=== PATIENT | male | born 2000 | race Hispanic/Latino ===

== ENCOUNTER 2023-06-02 08:24 | Day surgery (SDC) | payer BC ==
[2023-05-28 15:47] LABS: BASOPHILS # (AUTO) 0.04 K/uL (0.00-0.20); BASOPHILS % (AUTO) 0.8 % (0.0-5.0); EOSINOPHILS # (AUTO) 0.05 K/uL (0.00-0.70); HEMATOCRIT 45.7 % (42-54); IMMATURE GRANULOCYTE ABSOLUTE 0.02 K/uL (0-1); LYMPHOCYTES # (AUTO) 1.7 K/uL (1.0-4.8); LYMPHOCYTES % (AUTO) 35.8 % (21.0-51.0); MEAN CORPUSCULAR HEMOGLOBIN 30.9 pg (27.0-33.0); MEAN CORPUSCULAR HGB CONC 34.6 g/dL (32.0-36.0); MEAN CORPUSCULAR VOLUME 89.4 fL (79-99); MONOCYTES # (AUTO) 0.5 K/uL (0.1-1.0); MONOCYTES % (AUTO) 10.8 % (3.0-13.0); NEUTROPHILS # (AUTO) 2.5 K/uL (1.8-7.7); NEUTROPHILS % (AUTO) 51.2 % (40.0-77.0); PLATELET COUNT (AUTO) 309 K/uL (130-400); RED BLOOD CELL COUNT(AUTO) 5.11 MIL/uL (4.50-6.20); RED CELL DISTRIBUTION WIDTH 12.2 % (11.0-15.5); WHITE BLOOD COUNT (AUTO) 4.8 K/uL (4.8-10.8)
[2023-05-28 16:09] LABS: CREATININE 0.9 mg/dL (0.5-1.5); POTASSIUM 3.7 mmol/L (3.5-5.1)
[2023-05-28 16:18] VITALS: BP 127/69; PULSE 65; RESP 12
[2023-06-02] VITALS (17 sets, daily range): BP systolic 120–149; BP diastolic 62–92; PULSE 59–80; RESP 15–20
[~2023-06-02] VITALS: Ht 171.4 cm; Wt 80.7 kg
[2023-06-02] MEDS ORDERED: LACTATED RINGERS 1000ML 1,000 ML IV ONE (08:30)
[2023-06-02] MEDS ORDERED: CEFAZOLIN SODIUM 2 GM VIAL ONE (08:30)
[2023-06-02] MEDS ORDERED: ROCURONIUM 10MG/1ML SYR 10 MG/ML ML ONE (11:30)
[2023-06-02] MEDS ORDERED: MIDAZOLAM HCL 1 MG/ML 2ML VIAL ONE (11:30)
[2023-06-02] MEDS ORDERED: PROPOFOL 10 MG/ML 20ML VIAL IV ONE (11:30)
[2023-06-02] MEDS ORDERED: FENTANYL CITRATE PF 50 MCG/1 ML 2ML VIAL ONE ×2 (11:30→12:55)
[2023-06-02] MEDS ORDERED: ONDANSETRON 4MG INJ ONE (11:30)
[2023-06-02] MEDS ORDERED: MEPERIDINE-PF 25 MG/ML SYG ONE ×2 (11:48→13:17)
[2023-06-02] MEDS ORDERED: CEFAZOLIN SODIUM 2 GM VIAL IVPB ONE (11:51)
[2023-06-02] MEDS ORDERED: DEXAMETHASONE SOD PHOSPHATE 4 MG/ML 1ML VIAL ONE (12:30)
[2023-06-02] MEDS ORDERED: DEXAMETHASONE SOD PHOSPHATE 10MG/ML 1ML VIAL ONE (12:31)
[2023-06-02] MEDS ORDERED: NEOSTIGMINE 5MG/5ML SYR IV ONE (12:49)
[2023-06-02] MEDS ORDERED: GLYCOPYRROLATE 1 MG/5 ML SYRINGE ONE (12:49)
[2023-06-02] MEDS ORDERED: KETOROLAC 30MG VIAL (30MG/ML) ONE (12:51)
[2023-06-02] MEDS ORDERED: HYDROCODONE/ACETAMINOPHEN 10/325 MG TAB PO PRN (13:30)
== END 2023-06-02 14:50 | disposition home or self-care (01) ==
LOC: DAH 08:24
PROVIDERS: ATTEND Orthopaedic Surgery
DX: S83.272A Complex tear of lateral meniscus, current injury, left knee, initial encounter (principal); M67.462 Ganglion, left knee; M22.42 Chondromalacia patellae, left knee; E66.3 Overweight; Z68.28 Body mass index [BMI] 28.0-28.9, adult; X58.XXXA Exposure to other specified factors, initial encounter; Y93.89 Activity, other specified; Y92.89 Other specified places as the place of occurrence of the external cause; Y99.8 Other external cause status
CPT/HCPCS: 80048; 85025; 36415; 29881; 27347; A6260; A4663; A4606; J7120; J3010 ×2; J3490; J1100; J2710; J2250; J2704; J2405; J1885; J2175 ×2; J0690 ×2; A6223; A4649 ×2; A5120; A4215; A4223; A4222; A4221; A6450

== ENCOUNTER 2025-09-13 19:10 | Emergency (ER) | payer BC ==
[~2025-09-13] VITALS: Ht 172.7 cm; Wt 79.4 kg
--- NOTE | 2025-09-13 20:05 | ERN ---
General Chief Complaint: Multiple Complaints Stated Complaint: FEVER, NAUSEA, VOMITING, DEHYDRATION Time Seen by MD: 19:15 Source: patient History of Present Illness Initial Comments PATIENT IS A COMING IN COMPLAINING OF NAUSEOUSNESS AND VOMITING. HE STATES THAT HE HAS BEEN DRINKING ALCOHOL YESTERDAY AND FEELS NAUSEOUS AND DEHYDRATED. Allergies: Coded Allergies: No Known Drug Allergies (Unverified Allergy, Unknown, 04/01/23) Home Meds Active Scripts Famotidine (Famotidine) 20 Mg Tablet, 1 TAB PO BID for 20 Days, #40 TAB 0 Refills Prov:RISHI BANDA MD 09/13/25 Past Medical History Past Medical History: No Pertinent History Past Surgical History: Other Surgical History Other: MINISCUS SURGERY ROS Dictation CONSTITUTIONAL: NO CHILLS, NO FEVER, WEAKNESS, NO DIAPHORESIS, MALAISE. HEAD/FACE: NO SIGNS OF TRAUMA. EENT: NO EYE PAIN, NO BLURRED VISION, NO TEARING, NO DOUBLE VISION, NO EAR PAIN, NO EAR DISCHARGE, NO NOSE PAIN, NO NASAL CONGESTION, NO THROAT PAIN, NO THROAT SWELLING, NO MOUTH PAIN. RESPIRATORY: NO COUGH, NO ORTHOPNEA, NO SOB, NO STRIDOR, NO WHEEZING. CARDIOVASCULAR: NO CHEST PAIN, NO EDEMA, NO PALPITATIONS, NO SYNCOPE. GASTROINTESTINAL/ABDOMINAL: NO ABDOMINAL PAIN, NO CONSTIPATION, NO DIARRHEA, NAUSEA, VOMITING. GENITOURINARY: NO ABNORMAL DISCHARGE, NO DYSURIA, NO FREQUENT URINATION, NO HEMATURIA. NO COMPLAINTS OF PAIN IN THE GENITALS. MUSCULOSKELETAL: NO BACK PAIN, NO GOUT, NO JOINT PAIN, NO JOINT SWELLING, NO MUSCLE PAIN, NO MUSCLE STIFFNESS, NO NECK PAIN. INTEGUMENTARY: NO CHANGE IN COLOR, NO CHANGE IN HAIR/NAILS, NO DRYNESS, NO LESION, NO LUMPS, NO RASH. NEUROLOGICAL/PSYCH: NO ANXIETY, NOT DEPRESSED, NO EMOTIONAL PROBLEM, NO HEADACHE, NO NUMBNESS, NO PRE-EXISTING DEFICIT, NO HISTORY OF SEIZURES, NO T REMORS, NO WEAKNESS. HEMATOLOGIC/LYMPHATIC: NOT ANEMIC, NO HISTORY OF BLOOD CLOTS, NO APPARENT BLEEDING, NO BRUISING, GLANDS NOT SWOLLEN. ALL SYSTEMS NEGATIVE, EXCEPT NOTED. Physical Exam Physical Exam Dictation VITAL SIGNS: REVIEWED. GENERAL APPEARANCE: ALERT, ORIENTED X3, NO ACUTE DISTRESS, OBESE. HEAD AND FACE: NON-TRAUMATIC. EYES: PERRL, PINK CONJUNCTIVAS, EYELID NO TRAUMA, ANTERIOR CHAMBER CLEAR. EARS: PINNAS INTACT AND NO SIGNS OF TRAUMA OR ERYTHEMA. EAR CANALS CLEAR AND NO DISCHARGE. TMS NO ERYTHEMA. NOSE: NO DISCHARGE, NO BLEEDING. OROPHARYNX: MOUTH NORMAL, TEETH NO CARIES, TONGUE PINK. PHARYNX CLEAR, NO ERYTHEMA. TONSILS NO EXUDATES, NO ABSCESSES NOTED. MUCOUS MEMBRANE MOIST. NECK: SUPPLE, NON-TENDER, NO THYROMEGALY, NO MASSES, NO JVD, NO BRUITS. BREAST: DEFERRED. CHEST: NO TENDERNESS, NO CREPITUS, NO PARADOXICAL MOVEMENT, NO RETRACTIONS. LUNGS: CLEAR, WELL-VENTILATED, SYMMETRIC, NO RALES, NO WHEEZING, NO RHONCHI, NO STRIDOR, GOOD BREATH SOUNDS BILATERALLY. HEART: REGULAR RATE, REGULAR RHYTHM, NO MURMUR, NO GALLOPS. VASCULAR: NO PERIPHERAL EDEMA. ABDOMEN: SOFT, POSITIVE BOWEL SOUNDS, NONDISTENDED, NO GUARDING, NONTENDER, NO REBOUND, NO MASSES NO HEPATOMEGALY, NO SPLENOMEGALY, NO VELAZCO'S SIGN, NO HERNIAS. RECTAL: DEFERRED. GENITAL: DEFERRED. NEUROLOGICAL: NORMAL SPEECH, GROSS MOTOR FUNCTION INTACT, GROSS SENSORY FUNCTION INTACT. MUSCULOSKELETAL: NECK NONTENDER, FULL RANGE OF MOTION, BACK NONTENDER, FULL RANGE OF MOTION. EXTREMITIES: NONTENDER, FULL RANGE OF MOTION. SKIN: COLOR PINK, DRY, NO TURGOR, NO RASH, NO LACERATIONS, NO ABRASIONS, NO CONTUSIONS. LYMPHATICS: DEFERRED. Results Laboratory and Microbiology Lab and Micro Result Laboratory Tests Test 09/13/25 20:00 White Blood Count 7.0 K/uL (4.8-10.8) Red Blood Count 5.19 MIL/uL (4.50-6.20) Hemoglobin 16.3 g/dL (14.0-18.0) Hematocrit 46.1 % (42-54) Mean Corpuscular Volume 88.8 fL (79-99) Mean Corpuscular Hemoglobin 31.4 pg (27.0-33.0) Mean Corpuscular Hemoglobin Concent 35.4 g/dL (32.0-36.0) Red Cell Distribution Width 11.7 % (11.0-15.5) Platelet Count 294 K/uL (130-400) Mean Platelet Volume 9.7 fL (7.5-10.5) Immature Granulocyte % (Auto) 0.3 % (0-1) Neutrophils (%) (Auto) 60.3 % (40.0-77.0) Lymphocytes (%) (Auto) 28.4 % (21.0-51.0) Monocytes (%) (Auto) 9.6 % (3.0-13.0) Eosinophils (%) (Auto) 0.7 % (0.0-8.0) Basophils (%) (Auto) 0.7 % (0.0-5.0) Neutrophils # (Auto) 4.2 K/uL (1.8-7.7) Lymphocytes # (Auto) 2.0 K/uL (1.0-4.8) Monocytes # (Auto) 0.7 K/uL (0.1-1.0) Eosinophils # (Auto) 0.05 K/uL (0.00-0.70) Basophils # (Auto) 0.05 K/uL (0.00-0.20) Absolute Immature Granulocyte (auto 0.02 K/uL (0-1) Nucleated Red Blood Cells 0.0 % (0.0-0.19) Sodium Level 139 mmol/L (136-145) Potassium Level 4.1 mmol/L (3.5-5.1) Chloride Level 105 mmol/L (101-111) Carbon Dioxide Level 31 mmol/L (21-32) Blood Urea Nitrogen 15 mg/dL (7-18) Creatinine 1.3 mg/dL (0.5-1.3) Glomerular Filtration Rate Calc 78 mL/min (>90) Random Glucose 91 mg/dL (70-105) Total Calcium 9.1 mg/dL (8.5-10.1) Labs Reviewed?: Yes MDM MDM: DIFFERENTIAL DIAGNOSIS: DEHYDRATION, NAUSEOUSNESS, VIRAL GASTROENTERITIS, RATIONALE: TESTS CONSIDERED AND ORDERED SECONDARY TO SHARED DECISION MAKING INCLUDE: PREVIOUS OUTSIDE RECORDS REVIEWED: OLD ER VISITS. RISK OF COMPLICATION AND/OR MORBIDITY OR MORTALITY OF PATIENT MANAGEMENT: NONE MEDICATIONS-PER MEDICATION RECONCILIATION NEED FOR HOSPITALIZATION: PATIENT DOES NOT MEET CRITERIA FOR HOSPITALIZATION. NEED FOR EMERGENCY MAJOR/MINOR SURGERY: NO PATIENT IS A 25 Y/O MALE COMING IN COMPLAINING OF NAUSEOUSNESS AND VOMITING ED Course Orders Procedure Category Date Status Time Cbc With Differential LAB 09/13/25 Complete 19:45 Basic Metabolic Panel LAB 09/13/25 Complete 19:45 Pantoprazole 40mg Inj PHA 09/13/25 Complete (Protonix 40mg Inj 20:00 0.9%Nacl 1000ml (Ns PHA 09/13/25 Complete 1000ml) 20:00 Current Medications Medications (Trade) Dose Ordered Sig/Gus Route PRN Reason Start Time Stop Time Status Last Admin Dose Admin Pantoprazole Sodium (PROTonix 40MG INJ) 40 mg ONCE ONCE IVP 09/13/25 20:00 09/13/25 20:01 DC Sodium Chloride 1,000 ml @ 0 mls/hr ONCE ONCE IV 09/13/25 20:00 09/13/25 20:01 DC Vital Signs Date Time Temp Pulse Resp B/P (MAP) Pulse Ox O2 Delivery O2 Flow Rate FiO2 09/13/25 19:13 96.6 79 18 149/79 97 Room Air 0 DX & DISP Disposition: Discharge Departure Impression: Primary Impression: Dehydration Additional Impression: Hangover effect Condition: Stable Scripts Famotidine (Famotidine) 20 Mg Tablet 1 TAB PO BID for 20 Days, #40 TAB 0 Refills Prov: RISHI BANDA MD 09/13/25 Additional Instructions: FOLLOW-UP WITH PRIMARY CARE PROVIDER IN 1 TO 2 DAYS. TAKE MEDICATIONS DIRECTED HERE IN THE EMERGENCY ROOM. OKAY TO CONTINUE HOME MEDICATIONS UNLESS OTHERWISE DISCUSSED DURING YOUR VISIT IN THE EMERGENCY ROOM TODAY. RETURN TO YOUR NEAREST EMERGENCY ROOM IF SYMPTOMS WORSEN OR IF THERE IS NO IMPROVEMENT. CALL 911 IF YOU NEED IMMEDIATE ASSISTANCE. TAKE TYLENOL [id number] NEEDED AND IF NO CONTRAINDICATIONS ARE PRESENT. INCREASE ORAL HYDRATION. A WOUND CULTURE OR URINE CULTURE WAS ORDERED HERE IN THE EMERGENCY ROOM DEPARTMENT PLEASE FOLLOW-UP WITH PRIMARY CARE PROVIDER AND ADVISE THEM TO GET REPORTS FROM OUR FACILITY. IF YOU HAD ANY JENNY WRAP/SPLINTS THAT WERE APPLIED HERE, PLEASE DO NOT REMOVE THEM UNTIL YOU SEE YOUR PRIMARY CARE OR SPECIALTY. REFERRALS: Referrals: SELF,REFERRAL (PCP) TEE HUTTON MD Time of Disposition: 20:35 RISHI BANDA MD Sep 13, 2025 20:05
[2025-09-13 20:15] LABS: IMMATURE GRANULOCYTE ABSOLUTE 0.02 K/uL (0-1); NUCLEATED RED BLOOD CELLS 0.0 % (0.0-0.19); PLATELET COUNT (AUTO) 294 K/uL (130-400); RED BLOOD CELL COUNT(AUTO) 5.19 MIL/uL (4.50-6.20); RED CELL DISTRIBUTION WIDTH 11.7 % (11.0-15.5); WHITE BLOOD COUNT (AUTO) 7.0 K/uL (4.8-10.8)
[2025-09-13 20:27] LABS: CREATININE 1.3 mg/dL (0.5-1.3); GLOMERULAR FILTR. RATE CALC 78.0 mL/min (>90); GLUCOSE,RANDOM 91.0 mg/dL (70-105); SODIUM SERUM 139.0 mmol/L (136-145); UREA NITROGEN, BLOOD 15.0 mg/dL (7-18)
[2025-09-13] MEDS ORDERED: FAMO20TA8 PO (20:36)
[2025-09-13] MEDS: 0.9%NACL 1000ML 1,000 ML IV ONE (20:58)
[2025-09-13] MEDS ORDERED: ONDA-243 PO (21:42)
[2025-09-13 21:54] VITALS: BP 137/73; PULSE 75; RESP 16; TEMP 97.3; O2SAT 97
== END 2025-09-13 21:55 | disposition home or self-care (01) ==
LOC: EDH 19:10
DX: E86.0 Dehydration (principal); F10.129 Alcohol abuse with intoxication, unspecified; R11.2 Nausea with vomiting, unspecified; Y90.9 Presence of alcohol in blood, level not specified
CPT/HCPCS: 99284; 96374; 96375; 80048; 85025; 36415; J2405; J2470